=== PATIENT | female | born 1940 | race Hispanic/Latino ===

== ENCOUNTER 2018-01-10 20:55 | Emergency (ER) | payer MEDICARE ==
[2018-01-10] MEDS ORDERED: ONDANSETRON ODT 4 MG TAB ONE (21:18)
[2018-01-10] MEDS ORDERED: HYDROCODONE/ACETAMINOPHEN 10/325 MG TAB ONE (21:19)
== END 2018-01-10 23:56 | disposition home or self-care (01) ==
LOC: EDH 20:55
DX: S00.03XA Contusion of scalp, initial encounter (principal); S80.01XA Contusion of right knee, initial encounter; G89.29 Other chronic pain; M25.511 Pain in right shoulder; E78.5 Hyperlipidemia, unspecified; I10 Essential (primary) hypertension; Z96.651 Presence of right artificial knee joint; W18.39XA Other fall on same level, initial encounter; Y93.89 Activity, other specified; Y92.098 Other place in other non-institutional residence as the place of occurrence of the external cause; Y99.8 Other external cause status
CPT/HCPCS: 70450; 71045; 71100; 72170; 73030; 73562

== ENCOUNTER 2018-09-10 20:59 | Emergency (ER) | payer MEDICARE ==
[2018-09-10] MEDS ORDERED: ACETAMINOPHEN EXTRA STRENGTH 500 MG TABLET ONE (21:39)
== END 2018-09-10 22:18 | disposition home or self-care (01) ==
LOC: EDH 20:59
DX: S90.111A Contusion of right great toe without damage to nail, initial encounter (principal); E78.5 Hyperlipidemia, unspecified; I10 Essential (primary) hypertension; M19.90 Unspecified osteoarthritis, unspecified site; Z98.890 Other specified postprocedural states; X58.XXXA Exposure to other specified factors, initial encounter; Y93.89 Activity, other specified; Y92.89 Other specified places as the place of occurrence of the external cause; Y99.8 Other external cause status
CPT/HCPCS: 73630

== ENCOUNTER 2019-01-28 18:18 | Inpatient (IN) | payer MEDICARE ==
[~2019-01-28] VITALS: Ht 152.4 cm; Wt 84.8 kg
[2019-01-28 18:49] LABS: BASOPHILS % (AUTO) 0.8 % (0.0-5.0); EOSINOPHILS % (AUTO) 4.4 % (0.0-8.0); HEMATOCRIT 40.5 % (36-48); LYMPHOCYTES % (AUTO) 34.4 % (21.0-51.0); MEAN CORPUSCULAR HEMOGLOBIN 28.4 pg (27.0-33.0); MEAN CORPUSCULAR HGB CONC 32.7 g/dL (32.0-36.0); MEAN CORPUSCULAR VOLUME 86.9 fL (79-99); MONOCYTES % (AUTO) 9.9 % (3.0-13.0); NEUTROPHILS % (AUTO) 50.5 % (40.0-77.0); NUCLEATED RED BLOOD CELLS 0.1 % (0.0-0.19); PLATELET COUNT (AUTO) 126 K/uL (130-400); RED BLOOD CELL COUNT(AUTO) 4.66 MIL/uL (4.00-5.50); RED CELL DISTRIBUTION WIDTH 15.6 % (11.0-15.5); WHITE BLOOD COUNT (AUTO) 5.7 K/uL (4.8-10.8)
[2019-01-28 19:04] LABS: CREATININE 0.6 mg/dL (0.5-1.5); POTASSIUM 4.2 mmol/L (3.5-5.1)
[2019-01-28] MEDS ORDERED: ACETAMINOPHEN 325 MG TAB ONE (19:09)
[2019-01-28 19:17] LABS: ALBUMIN 3.4 g/dL (3.5-5.0); BILIRUBIN,TOTAL 0.3 mg/dL (0.2-1.0); TOTAL PROTEIN, SERUM 7.4 g/dL (6.0-8.3)
[2019-01-28 19:26] LABS: CREATINE KINASE, TOTAL 57 U/L (21-232); MYOGLOBIN 27 ng/mL (10-92); TROPONIN I < 0.04 ng/mL (0.00-0.06)
[2019-01-28] MEDS ORDERED: AMLODIPINE BESYLATE 5 MG TAB PO ONE (23:39)
[2019-01-29] MEDS ORDERED: CLONIDINE HCL 0.1 MG TABLET ONE (01:51)
[2019-01-29] MEDS ORDERED: ACETAMINOPHEN 325 MG TAB PO PRN (02:30)
[2019-01-29] MEDS ORDERED: ONDANSETRON HCL 4 MG/2 ML VIAL IV PRN (02:30)
[2019-01-29] MEDS ORDERED: HYDRALAZINE HCL 20 MG/ML VIAL IV PRN (02:30)
[2019-01-29] MEDS ORDERED: HYDRALAZINE HCL 20 MG/ML VIAL ONE (02:34)
[2019-01-29 03:30] VITALS: BP 139/73
[2019-01-29 05:11] LABS: CREATINE KINASE, TOTAL 49 U/L (21-232); MYOGLOBIN 36 ng/mL (10-92); TROPONIN I < 0.04 ng/mL (0.00-0.06)
[2019-01-29 08:00] VITALS: BP 122/71
[2019-01-29] MEDS ORDERED: LISI10TA7 PO (09:23)
[2019-01-29] MEDS: ENOXAPARIN SODIUM 30 MG/0.3 ML SQ SCH ×2 (09:55→21:02)
[2019-01-29] MEDS: FAMOTIDINE/PF 20 MG/2 ML VIAL IV SCH (09:56)
[2019-01-29] MEDS: METOPROLOL TARTRATE 25 MG TAB PO SCH ×2 (09:56→20:56)
[2019-01-29] MEDS: ACETAMINOPHEN 325 MG TAB PO PRN (10:25)
--- NOTE | 2019-01-29 11:23 | NUR ---
INITIAL: Met with pt and family this morning to discuss dcp. Pt states that she lives w her adult granddtr. Prior to admission she was independent w ambulation and aDLs. She has provider services 4 1/2hr per day if needed for assistance. Per pt she does not own any DME. Pt states that she feels safe and comfortable [place]. CM to continue to follow and wait for Md recommendations. Addendum: 01/29/19 at 1124 by TERRELL PHILLIPS Amended: Links added.
[2019-01-29 12:00] VITALS: BP 126/69
[2019-01-29 12:28] LABS: CREATINE KINASE, TOTAL 47 U/L (21-232); MYOGLOBIN 50 ng/mL (10-92); TROPONIN I < 0.04 ng/mL (0.00-0.06)
[2019-01-29 16:00] VITALS: BP_SYST 103; BP_SYST 110; BP_DIAS 55; BP_DIAS 66
[2019-01-29 20:11] VITALS: BP 140/76
[2019-01-30] VITALS (8 sets, daily range): BP systolic 126–157; BP diastolic 65–98
[2019-01-30] MEDS: FAMOTIDINE/PF 20 MG/2 ML VIAL IV SCH (09:24)
[2019-01-30] MEDS: ACETAMINOPHEN 325 MG TAB PO PRN (09:24)
[2019-01-30] MEDS: METOPROLOL TARTRATE 25 MG TAB PO SCH ×2 (09:24→22:05)
[2019-01-30] MEDS: ENOXAPARIN SODIUM 30 MG/0.3 ML SQ SCH ×2 (09:27→22:04)
[2019-01-30 14:58] LABS: HEMATOCRIT 40.6 % (36-48); MEAN CORPUSCULAR HEMOGLOBIN 28.8 pg (27.0-33.0); MEAN CORPUSCULAR HGB CONC 32.8 g/dL (32.0-36.0); MEAN CORPUSCULAR VOLUME 87.7 fL (79-99); PLATELET COUNT (AUTO) 135 K/uL (130-400); RED BLOOD CELL COUNT(AUTO) 4.63 MIL/uL (4.00-5.50); RED CELL DISTRIBUTION WIDTH 15.8 % (11.0-15.5); WHITE BLOOD COUNT (AUTO) 5.2 K/uL (4.8-10.8)
[2019-01-30 15:21] LABS: ALBUMIN 2.9 g/dL (3.5-5.0); BILIRUBIN,TOTAL 0.4 mg/dL (0.2-1.0); CREATININE 0.7 mg/dL (0.5-1.5); MAGNESIUM 2.1 mg/dL (1.80-2.40); PHOSPHORUS 3.7 mg/dL (2.5-4.9); POTASSIUM 3.6 mmol/L (3.5-5.1); THYROID STIMULATING HORMONE 1.35 uIU/mL (0.36-3.74); TOTAL PROTEIN, SERUM 6.8 g/dL (6.0-8.3)
[2019-01-31] VITALS (8 sets, daily range): BP systolic 98–158; BP diastolic 65–84
[2019-01-31] MEDS: FAMOTIDINE/PF 20 MG/2 ML VIAL IV SCH (09:27)
[2019-01-31] MEDS: METOPROLOL TARTRATE 25 MG TAB PO SCH ×2 (09:27→21:28)
[2019-01-31] MEDS: ENOXAPARIN SODIUM 30 MG/0.3 ML SQ SCH (09:35)
[2019-01-31] MEDS ORDERED: MECLIZINE HCL 12.5 MG TABLET PO PRN (10:15)
[2019-01-31] MEDS: AMLODIPINE BESYLATE 5 MG TAB PO SCH (13:24)
[2019-02-01] VITALS (10 sets, daily range): BP systolic 98–148; BP diastolic 42–81
[2019-02-01 06:11] LABS: HEMATOCRIT 40.9 % (36-48); MEAN CORPUSCULAR HEMOGLOBIN 28.6 pg (27.0-33.0); MEAN CORPUSCULAR HGB CONC 32.6 g/dL (32.0-36.0); MEAN CORPUSCULAR VOLUME 87.8 fL (79-99); PLATELET COUNT (AUTO) 132 K/uL (130-400); RED BLOOD CELL COUNT(AUTO) 4.65 MIL/uL (4.00-5.50); WHITE BLOOD COUNT (AUTO) 5.5 K/uL (4.8-10.8)
[2019-02-01 06:27] LABS: CREATININE 0.5 mg/dL (0.5-1.5); POTASSIUM 4.1 mmol/L (3.5-5.1)
--- NOTE | 2019-02-01 08:35 | NUR ---
Notified Dr. Cruz of consult, states he will be in today to see pt.
[2019-02-01] MEDS: METOPROLOL TARTRATE 25 MG TAB PO SCH ×2 (09:35→21:24)
[2019-02-01] MEDS: AMLODIPINE BESYLATE 5 MG TAB PO SCH (09:35)
[2019-02-01] MEDS: FAMOTIDINE/PF 20 MG/2 ML VIAL IV SCH (09:35)
[2019-02-01] MEDS: ENOXAPARIN SODIUM 30 MG/0.3 ML SQ SCH (09:36)
[2019-02-01] MEDS ORDERED: MECLIZINE HCL 12.5 MG TABLET PO SCH (10:15)
[2019-02-01] MEDS ORDERED: MECLIZINE HCL 12.5 MG TABLET PO PRN (10:30)
[2019-02-01] MEDS ORDERED: GADODIAMIDE 10 MMOL/20 ML VIAL IV ONE (12:52)
--- NOTE | 2019-02-01 14:04 | NUR ---
CM Note: Declined SNF CM met with pt discuss MD recommendation for short term rehab. Pt and family at this time declined placement, daughter would like to take pt back home, pt has good support group and has someone at home at all times. Primary nurse and Maribel Torres HOME DECORATOR made aware. CM to cont to follow up.
[2019-02-02] VITALS (8 sets, daily range): BP systolic 119–143; BP diastolic 66–81
[2019-02-02 05:24] LABS: HEMATOCRIT 40.1 % (36-48); MEAN CORPUSCULAR HEMOGLOBIN 29.6 pg (27.0-33.0); MEAN CORPUSCULAR HGB CONC 33.8 g/dL (32.0-36.0); MEAN CORPUSCULAR VOLUME 87.5 fL (79-99); PLATELET COUNT (AUTO) 113 K/uL (130-400); RED BLOOD CELL COUNT(AUTO) 4.59 MIL/uL (4.00-5.50); RED CELL DISTRIBUTION WIDTH 15.6 % (11.0-15.5); WHITE BLOOD COUNT (AUTO) 6.3 K/uL (4.8-10.8)
[2019-02-02 05:31] LABS: CREATININE 0.6 mg/dL (0.5-1.5); POTASSIUM 4.1 mmol/L (3.5-5.1)
[2019-02-02] MEDS: FAMOTIDINE/PF 20 MG/2 ML VIAL IV SCH (08:46)
[2019-02-02] MEDS: AMLODIPINE BESYLATE 5 MG TAB PO SCH (08:46)
[2019-02-02] MEDS: METOPROLOL TARTRATE 25 MG TAB PO SCH (08:46)
[2019-02-02] MEDS: ENOXAPARIN SODIUM 30 MG/0.3 ML SQ SCH (08:46)
[2019-02-02] MEDS ORDERED: MECL12.585 PO (11:00)
[2019-02-02] MEDS ORDERED: AMLO5TAB4 PO (11:00)
[2019-02-02] MEDS ORDERED: METO25 PO (11:00)
[2019-02-02] MEDS ORDERED: ASPI-1197 PO (11:24)
[2019-02-03] MEDS ORDERED: ASPIRIN 81MG TAB.CHEW PO SCH (09:00)
== END 2019-02-02 18:20 | disposition home or self-care (01) | DRG 312 ==
LOC: EDH 18:18 → EDHIP 01-29 02:00 → 4BH 01-29 02:57 → 3AH 01-29 03:18
PROVIDERS: ADMIT Hospitalist; ATTEND Hospitalist
DX: I95.1 Orthostatic hypotension (principal); E78.5 Hyperlipidemia, unspecified; I10 Essential (primary) hypertension; Z96.652 Presence of left artificial knee joint; R42 Dizziness and giddiness; I08.1 Rheumatic disorders of both mitral and tricuspid valves; I48.91 Unspecified atrial fibrillation; Z98.51 Tubal ligation status
CPT/HCPCS: 36415; 70450; 70553; 80048; 80053; 82550; 83735; 83874; 84100; 84443; 84484; 85025; 85027; 93005; 93306; 93880; A9579; G0378; J0360; J1650; J3490

== ENCOUNTER 2019-09-08 13:41 | Emergency (ER) | payer MEDICARE ==
[~2019-09-08 13:41] MED LIST: ACET650T7 PO; AMLO5TAB4 PO; ASPI-1197 PO; CYAN-52 PO; FOLI1 PO; LISI10TA7 PO; MECL-183 PO; METO25 PO
[2019-09-08 14:22] LABS: BASOPHILS % (AUTO) 0.3 % (0.0-5.0); EOSINOPHILS % (AUTO) 4.5 % (0.0-8.0); HEMATOCRIT 45.1 % (36-48); MEAN CORPUSCULAR HEMOGLOBIN 28.3 pg (27.0-33.0); MEAN CORPUSCULAR HGB CONC 31.7 g/dL (32.0-36.0); MEAN CORPUSCULAR VOLUME 89.1 fL (79-99); MONOCYTES % (AUTO) 8.7 % (3.0-13.0); NEUTROPHILS % (AUTO) 56.2 % (40.0-77.0); PLATELET COUNT (AUTO) 139 K/uL (130-400); RED BLOOD CELL COUNT(AUTO) 5.06 MIL/uL (4.00-5.50); WHITE BLOOD COUNT (AUTO) 6.2 K/uL (4.8-10.8)
[2019-09-08] MEDS ORDERED: ACETAMINOPHEN 325 MG TAB ONE (14:33)
[2019-09-08 14:48] LABS: CREATININE 0.6 mg/dL (0.5-1.5); INR 1.03 (0.85-1.15); PARTIAL THROMBOPLASTIN TIME 30.5 SEC (26.3-35.5); POTASSIUM 4.1 mmol/L (3.5-5.1); PROTHROMBIN TIME 10.8 SEC (9.6-11.6)
== END 2019-09-08 16:49 | disposition home or self-care (01) ==
LOC: EDH 13:41
DX: I87.002 Postthrombotic syndrome without complications of left lower extremity (principal); E78.5 Hyperlipidemia, unspecified; I10 Essential (primary) hypertension; M19.90 Unspecified osteoarthritis, unspecified site; Z98.890 Other specified postprocedural states
CPT/HCPCS: 36415; 80048; 85025; 85610; 85730; 93971

== ENCOUNTER 2022-10-10 11:12 | Emergency (ER) | payer MEDICARE ==
[~2022-10-10] VITALS: Ht 152.4 cm; Wt 72.6 kg
[~2022-10-10 11:12] MED LIST changes: +ACET-2521 PO; -ACET650T7 PO; +LISI10TA24 PO; -LISI10TA7 PO; -MECL-183 PO; +MECL-226 PO
[2022-10-10 11:49] LABS: BASOPHILS % (AUTO) 0.5 % (0.0-5.0); HEMATOCRIT 33.6 % (36-48); MEAN CORPUSCULAR HEMOGLOBIN 25.8 pg (27.0-33.0); MEAN CORPUSCULAR HGB CONC 30.7 g/dL (32.0-36.0); MONOCYTES % (AUTO) 10.3 % (3.0-13.0); NEUTROPHILS % (AUTO) 56.9 % (40.0-77.0); PLATELET COUNT (AUTO) 187 K/uL (130-400); RED CELL DISTRIBUTION WIDTH 15.4 % (11.0-15.5); WHITE BLOOD COUNT (AUTO) 6.4 K/uL (4.8-10.8)
[2022-10-10 11:59] LABS: CREATININE 0.6 mg/dL (0.5-1.5); POTASSIUM 3.5 mmol/L (3.5-5.1)
[2022-10-10] MEDS ORDERED: SOLU-MEDROL 125MG VIAL IVP ONE (12:00)
[2022-10-10 12:04] LABS: ALBUMIN 3.3 g/dL (3.5-5.0); TOTAL PROTEIN, SERUM 7.4 g/dL (6.0-8.3)
[2022-10-10 13:50] LABS: APPEARANCE,URINE CLEAR (CLEAR); BACTERIA,URINE RARE /HPF (None Seen); BILIRUBIN,URINE NEGATIVE (NEGATIVE); COLOR,URINE LIGHT-YELLOW (YELLOW); GLUCOSE, URINE (UA) NEGATIVE (NEGATIVE); KETONES,URINE NEGATIVE (NEGATIVE); LEUKOCYTE ESTERASE ,URINE 75 Leu/uL (NEGATIVE); MUCUS,URINE RARE LPF (None Seen); NITRATE,URINE NEGATIVE (NEGATIVE); OCCULT BLOOD,URINE NEGATIVE (NEGATIVE); PH,URINE 5.5 (5.0-8.0); PROTEIN,URINE NEGATIVE (NEGATIVE); RBC,URINE 0-1 /HPF (0-1); SQUAMOUS EPITHELIAL CELL,UR FEW /HPF (0-2); UROBILINOGEN,URINE 0.2 mg/dL (0.2-1.0)
[2022-10-10] MEDS ORDERED: CEPH500B PO (14:57)
[2022-10-10 14:59] VITALS: BP 158/68
== END 2022-10-10 15:18 | disposition home or self-care (01) ==
LOC: EDH 11:12
DX: N39.0 Urinary tract infection, site not specified (principal); M19.90 Unspecified osteoarthritis, unspecified site; J32.9 Chronic sinusitis, unspecified; E78.00 Pure hypercholesterolemia, unspecified; I10 Essential (primary) hypertension; Z79.82 Long term (current) use of aspirin; Z79.899 Other long term (current) drug therapy; Z20.822 Contact with and (suspected) exposure to COVID-19
CPT/HCPCS: 99285; 96374; 71045; 87635; 80053; 85025; 87088; 87804 ×2; 81001; 36415; 93005; C9803; J2930

== ENCOUNTER 2023-08-14 15:49 | Emergency (ER) | payer MEDICARE ==
[~2023-08-14] VITALS: Ht 160 cm; Wt 78.9 kg
[~2023-08-14 15:49] MED LIST changes: +CEPH500B PO
[2023-08-14 17:00] LABS: BASOPHILS # (AUTO) 0.02 K/uL (0.00-0.20); BASOPHILS % (AUTO) 0.4 % (0.0-5.0); EOSINOPHILS # (AUTO) 0.19 K/uL (0.00-0.70); EOSINOPHILS % (AUTO) 3.9 % (0.0-8.0); HEMATOCRIT 39.9 % (36-48); IMMATURE GRANULOCYTE ABSOLUTE 0.01 K/uL (0-1); LYMPHOCYTES # (AUTO) 1.7 K/uL (1.0-4.8); MEAN CORPUSCULAR HEMOGLOBIN 26.3 pg (27.0-33.0); MEAN CORPUSCULAR HGB CONC 31.3 g/dL (32.0-36.0); MONOCYTES # (AUTO) 0.5 K/uL (0.1-1.0); MONOCYTES % (AUTO) 9.3 % (3.0-13.0); NEUTROPHILS # (AUTO) 2.4 K/uL (1.8-7.7); NEUTROPHILS % (AUTO) 50.2 % (40.0-77.0); PLATELET COUNT (AUTO) 112 K/uL (130-400); RED BLOOD CELL COUNT(AUTO) 4.75 MIL/uL (4.00-5.50); RED CELL DISTRIBUTION WIDTH 17.9 % (11.0-15.5); WHITE BLOOD COUNT (AUTO) 4.8 K/uL (4.8-10.8)
[2023-08-14 17:09] LABS: CREATININE 0.7 mg/dL (0.5-1.5); POTASSIUM 3.6 mmol/L (3.5-5.1)
[2023-08-14 17:14] LABS: ALBUMIN 3.4 g/dL (3.5-5.0); BILIRUBIN,TOTAL 0.5 mg/dL (0.2-1.0); TOTAL PROTEIN, SERUM 7.5 g/dL (6.0-8.3)
[2023-08-14 17:42] VITALS: BP 176/92; PULSE 80; RESP 18; O2SAT 96
[2023-08-14 18:52] LABS: RAPID GROUP A STREP negative (NEGATIVE)
[2023-08-14 18:54] LABS: SARS-CoV-2, RNA, NAAT NEGATIVE SARS CoV-2 (NEGATIVE)
[2023-08-14 19:02] LABS: INFLUENZA TYPE A Negative For Type A (NEGATIVE); INFLUENZA TYPE B Negative For Type B (NEGATIVE)
== END 2023-08-14 19:13 | disposition home or self-care (01) ==
LOC: EDH 15:49
DX: I11.0 Hypertensive heart disease with heart failure (principal); I50.9 Heart failure, unspecified; M54.9 Dorsalgia, unspecified; E78.00 Pure hypercholesterolemia, unspecified; M19.90 Unspecified osteoarthritis, unspecified site; Z60.2 Problems related to living alone; Z20.822 Contact with and (suspected) exposure to COVID-19
CPT/HCPCS: 99285; 71045; 87635; 84484; 80053; 83880; 85025; 87880; 87804 ×2; 36415; 93005; C9803